=== PATIENT | female | born 1975 | race Hispanic/Latino ===

== ENCOUNTER 2017-11-28 11:42 | Observation (INO) | payer OTHER ==
[~2017-11-28] VITALS: Ht 154.9 cm; Wt 82.6 kg
[2017-11-28] VITALS (9 sets, daily range): BP systolic 121–154; BP diastolic 58–89
[2017-11-28] MEDS ORDERED: ONDANSETRON HCL INJ 2 MG/ML VIAL IV STA (11:51)
[2017-11-28] MEDS ORDERED: KETOROLAC TROMETHAMINE 30 MG/ML VIAL IV STA (11:51)
[2017-11-28] MEDS ORDERED: SODIUM CHLORIDE 0.9% 1000ML 1,000 ML IV SCH (12:00)
[2017-11-28 12:12] LABS: BASOPHILS # (AUTO) 0.1 (0.0-0.1); BASOPHILS % 0.4 % (0.0-1.0); EOSINOPHILS # (AUTO) 0.1 (0.0-0.4); EOSINOPHILS % 0.7 % (0.0-6.0); HEMATOCRIT 37.4 % (34.2-44.1); HEMOGLOBIN 12.4 g/dL (12.0-16.0); LYMPHOCYTES # (AUTO) 1.3 (1.0-3.2); LYMPHOCYTES % 9.7 % (18.0-39.1); MEAN CORPUSCULAR HEMOGLOBIN 27.7 pg (28-32); MEAN CORPUSCULAR HGB CONC 33.2 g/dL (31-35); MEAN CORPUSCULAR VOLUME 83.5 fL (81-99); MONOCYTES # (AUTO) 0.8 (0.2-0.8); MONOCYTES % 6.2 % (4.4-11.3); NEUTROPHILS # (AUTO) 11.3 (2.1-6.9); NEUTROPHILS % 82.8 % (38.7-80.0); PLATELET COUNT 509 x10e3/uL (140-360); RED BLOOD COUNT 4.48 x10e6/uL (3.6-5.1); RED CELL DISTRIBUTION WIDTH 13.1 % (11.7-14.4)
[2017-11-28 12:17] LABS: BILIRUBIN,URINE NEGATIVE (NEGATIVE); CLARITY,URINE CLOUDY (CLEAR); COLOR,URINE AMBER (YELLOW); KETONES,URINE TRACE (NEGATIVE); LEUKOCYTE ESTERASE ,URINE NEGATIVE (NEGATIVE); NITRITE,URINE NEGATIVE (NEGATIVE); PROTEIN,URINE DIPSTICK 1+ (NEGATIVE); URINE UROBILINOGEN 0.2 mg/dL (0.2 - 1)
[2017-11-28 12:31] LABS: BACTERIA,URINE RARE /HPF; EPITHELIAL CELLS,URINE MODERATE /LPF; RBC,URINE 21-50 /HPF (0-5); WBC,URINE (MAN) 0-5 /HPF (0-5)
[2017-11-28 12:33] LABS: ALANINE AMINOTRANSFERASE 30 IU/L (0-55); ALKALINE PHOSPHATASE 153 IU/L (40-150); ANION GAP 12.9 mmol/L (8-16); BLOOD UREA NITROGEN 9 mg/dL (7-26); BUN/CREATININE RATIO 9 (6-25); CALCIUM 9.7 mg/dL (8.4-10.2); CARBON DIOXIDE 26 mmol/L (22-29); CHLORIDE 101 mmol/L (98-107); CREATININE, SERUM 1.01 mg/dL (0.57-1.11); EST GLOMERULAR FILTRATION RATE 60 ML/MIN (60-); GLUCOSE 113 mg/dL (74-118); POTASSIUM 3.9 mmol/L (3.5-5.1); SODIUM 136 mmol/L (136-145)
--- NOTE | 2017-11-28 13:33 | Diagnostic Imaging Report ---
ADDENDUM #1 Addendum impression: Dose modulation, iterative reconstruction, and/or weight based adjustment of the mA/kV was utilized to reduce the radiation dose to as low as reasonably achievable. Signed by: Dr. Abhay Morrissey M.D. on 12/04/2017 11:02 AM ORIGINAL REPORT EXAM: CT Abdomen and Pelvis WITHOUT contrast INDICATION: Flank pain COMPARISON: None. TECHNIQUE: Abdomen and Pelvis was scanned utilizing a multidetector helical scanner without the use of IV contrast. Coronal and sagittal reformations were obtained. IV CONTRAST: None COMPLICATIONS: None RADIATION DOSE: Total DLP: 496 mGy*cm Estimated effective dose: (DLP x 0.015 x size factor) mSv CTDIvol has been reviewed. It is below the limits set by the Radiation Protocol Committee (RPC). Appropriate CT dose reduction techniques were utilized. FINDINGS: Abdomen: Lung Bases: Respiratory motion limits. No acute. Solid Organs: Cholecystectomy clips. There is a 6 mm calculus at the left UVJ with moderate left hydroureter, moderate left hydronephrosis, and moderate left perinephric stranding. Otherwise, nonenhanced images of the liver, adrenals, right kidney, spleen, and pancreas are unremarkable. Upper GI Tract: No small bowel obstructive changes. Nonspecific fluid-filled loops of small bowel. Vascularity: No aneurysm of aorta. Lymph Nodes: No suspicious adenopathy. Other: Diastases ventral abdomen. Pelvis: Bladder: Decompressed, limiting. Other: Uterus/adnexa grossly unremarkable within limitations of CT. Colon: No acute colonic findings. Bones: No acute findings. IMPRESSION: 1. 6 mm calculus left UVJ with moderate left hydroureter and hydronephrosis. Signed by: Dr. Cristopher Amato MD on 11/28/2017 1:30 PM
[2017-11-28] MEDS ORDERED: MORPHINE SULFATE 2 MG/ML SYR IV PRN (14:45)
[2017-11-28] MEDS: MORPHINE SULFATE INJ 4 MG/ML INJ IV PRN (15:15)
[2017-11-28] MEDS: SODIUM CHLORIDE 0.9% 1000ML 1,000 ML IV SCH ×2 (15:15→21:06)
[2017-11-28] MEDS: ONDANSETRON HCL INJ 2 MG/ML VIAL IV PRN (15:15)
[2017-11-28] MEDS ORDERED: CEFTRIAXONE SOD 1 GM VIAL IV SCH (16:00)
[2017-11-28] MEDS ORDERED: ALBUTEROL/IPRATROPIUM 3 ML NEB ONE (17:12)
[2017-11-28] MEDS ORDERED: METHYLPREDNISOLONE SOD SUCC 125 MG/2ML VIAL ONE (17:15)
[2017-11-28] MEDS ORDERED: MAGNESIUM SULFATE 2GM/50ML 50 ML IV ONE (17:16)
[2017-11-28] MEDS ORDERED: ALBUTEROL SULF 0.083% NEB SOLN 3 ML NEB NEB STA (17:57)
[2017-11-28] MEDS ORDERED: LIDOCAINE 1% W/EPINEPHRINE 20 ML VIAL INJ ONE (18:00)
[2017-11-28] MEDS ORDERED: IPRATROPIUM BROMIDE 0.02% 2.5 ML NEB NEB ONE (18:00)
[2017-11-28] MEDS ORDERED: DIPHENHYDRAMINE HCL 25 MG CAP PO PRN (18:15)
[2017-11-28] MEDS: HYDROCODONE/APAP 5MG-325MG TAB PO PRN (18:26)
[2017-11-28] MEDS: ALBUTEROL SULF 0.083% NEB SOLN 3 ML NEB NEB SCH (19:00)
--- NOTE | 2017-11-28 19:47 | Diagnostic Imaging Report ---
Examination: Single AP view of the chest. COMPARISON: None. INDICATION: Shortness of breath DISCUSSION: Lines/tubes: None. Lungs: The lungs are well inflated and clear. No pneumonia or pulmonary edema. Pleura: No pleural effusion or pneumothorax. Heart and mediastinum: The heart and the mediastinum are unremarkable. Bones and soft tissues: No acute bony abnormalities. IMPRESSION: 1. No acute cardiopulmonary abnormalities. Signed by: Dr. Abhay Morrissey M.D. on 11/28/2017 7:44 PM
--- NOTE | 2017-11-28 20:21 | Diagnostic Imaging Report ---
EXAMINATION: Head CT without contrast. HISTORY:Trauma, fall. COMPARISON:None. TECHNIQUE: Multidetector axial images were obtained from the foramen magnum to the vertex without contrast. The images were reconstructed using brain and bone algorithms. Thin section brain images were reformatted into coronal and sagittal planes. Dose modulation, iterative reconstruction, and/or weight based adjustment of the mA/kV was utilized to reduce the radiation dose to as low as reasonably achievable. Intravenous contrast: None IMAGE QUALITY: Acceptable. FINDINGS: Skull/scalp: Mild left frontal scalp soft tissue edema/hematoma and soft tissue emphysema with focal laceration. No acute depressed or displaced calvarial fracture. Focal scalp soft tissue defect in the right frontal scalp with deformity in the outer table of right frontal calvarium possibly related to prior trauma (image 22, series 3). Parenchyma: No abnormal density. No acute hemorrhage, mass or acute age or vascular territorial infarct. Arteries: No density suggestive of thrombosis. Dural sinuses: No abnormal density suggestive of thrombosis. Ventricles: No hydrocephalus or displacement. Extra-axial spaces: No abnormal density. Brain volume: Normal for age. Craniocervical junction: No mass, Chiari malformation, or basilar invagination. Sella: No mass. Paranasal/mastoid sinuses: Moderate mucosal thickening in left sphenoid sinus. Under pneumatization and sclerosis of right more than left mastoid air cells possibly related to chronic inflammation process. IMPRESSION: 1. Mild left frontal scalp soft tissue edema/hematoma and laceration. No acute calvarial fracture. 2. No acute posttraumatic intracranial abnormality. Signed by: Dr. Leola Mendoza M.D. on 11/28/2017 8:17 PM
--- NOTE | 2017-11-28 20:24 | Diagnostic Imaging Report ---
EXAMINATION: CT scan of the chest with contrast. TECHNIQUE: Helical CT images of the chest were performed from the lung apices to the level of the adrenal glands after the intravenous administration of 100 cc of Isovue 300. Coronal and sagittal reformatted images were obtained. COMPARISON: None. CLINICAL HISTORY:Nephrolithiasis, shortness of breath DISCUSSION: LINES/TUBES: None. LUNGS AND AIRWAYS: Scarring in the bilateral upper lobes and superior segment of the right lower lobe. No concerning consolidations, nodules, or masses. No pulmonary embolism to the lobar level. Artifact distally. PLEURA: No pneumothorax or pleural effusions. HEART AND MEDIASTINUM: The thyroid gland is normal. Enlargement of the main pulmonary artery measuring 3.2 cm. LYMPH NODES: There is no mediastinal, hilar or axillary lymphadenopathy. ABDOMEN: Limited contrast-enhanced views of the upper abdomen show no abnormality within the visualized liver, spleen, pancreas, or kidneys. The adrenal glands are normal. BONES AND SOFT TISSUES: No acute bony abnormalities. IMPRESSION: No pulmonary embolism. Scarring in the upper lungs. Signed by: Dr. Abhay Morrissey M.D. on 11/28/2017 8:21 PM
--- NOTE | 2017-11-28 20:30 | Diagnostic Imaging Report ---
History: Trauma, fall. Comparison studies: None Technique: Axial images were obtained through the cervical region.. Coronal and sagittal images reconstructed from the axial data. Dose modulation, iterative reconstruction, and/or weight based adjustment of the mA/kV was utilized to reduce the radiation dose to as low as reasonably achievable. Intravenous contrast: None Findings: Fractures: None. Soft tissue injuries: None. Atlantoaxial articulation: Intact. Alignment: Mild exaggeration of cervical lordosis. No scoliosis. 2 mm grade 1 retrolisthesis at C4-C5. Cervicomedullary junction: No abnormalities. The foramen magnum is patent. Soft tissues: Airspace opacity in right lung apex with traction bronchiectasis and calcifications likely represents scarring. Vertebrae: Nonspecific 5 mm sclerotic focus within the body of C2, may represent bone island. Nonspecific curvilinear hyperdensity posterior to the posterior arch of C1. No fractures, infection or neoplasm. Degenerative changes: C3-C4: Mild degenerative disc disease. C4-C5: Grade 1 retrolisthesis. Mild degenerative disc disease. No significant canal or foraminal stenosis. Marked degenerative changes in bilateral costovertebral joints in the visualized upper thoracic spine. IMPRESSION: 1. No acute cervical spine fracture. Grade 1 retrolisthesis at C4-C5 is likely degenerative. 2. Ligament, spinal cord and or vascular abnormalities cannot be excluded on the basis of this examination. Signed by: Dr. Leola Mendoza M.D. on 11/28/2017 8:27 PM
[2017-11-28] MEDS ORDERED: SODIUM CHLORIDE 0.9% 50ML 50 ML ONE (20:59)
[2017-11-28] MEDS ORDERED: IOPAMIDOL 370 MG/ML 200 ML INFUS..BTL INJ ONE (20:59)
[2017-11-28] MEDS: FAMOTIDINE 20 MG TAB PO SCH (21:06)
[2017-11-29] VITALS (8 sets, daily range): BP systolic 103–132; BP diastolic 58–76
[2017-11-29] MEDS: HYDROCODONE/APAP 5MG-325MG TAB PO PRN ×6 (00:09→23:15)
--- NOTE | 2017-11-29 00:25 | Consultation ---
PULMONARY CONSULTATION HISTORY: Charming but unfortunate 42-year-old woman, admitted with left flank pain. At approximately 2 a.m. had sweats, dizziness and vomiting. History of renal colic, history of asthma. Uses Symbicort irregularly. Nonsmoker, able to exercise. She became suddenly dizzy after an IV push dose of Rocephin and fell forward striking her head. Complaining of headaches and pain, shortness of breath. Now on BiPAP, able to wean off. She appears flushed. There is a laceration on the forehead. The patient does have history of smoking 1 to 2 cigarettes a day. PHYSICAL EXAMINATION VITAL SIGNS: Temperature 97.6, pulse 74, respirations 19, blood pressure 154/80. HEAD: Laceration on forehead. LUNGS: Diminished breath sounds. HEART: Regular rhythm. ABDOMEN: Nontender. EXTREMITIES: Nonedematous. IMPRESSION: Adverse drug reaction, possibly allergic, possibly related to rapid intravenous push. PLAN: Continue support. Check blood gas, chest x-ray. Bronchodilators, Benadryl, Pepcid, moderate-dose steroid. Observation. BiPAP, appears comfortable weaning off BiPAP. Thank you for this kind referral. Job#: [id number] [place]
[2017-11-29] MEDS: ALBUTEROL SULF 0.083% NEB SOLN 3 ML NEB NEB SCH ×4 (01:00→18:50)
--- NOTE | 2017-11-29 01:00 | Consultation ---
DATE OF CONSULTATION: November 28, 2017 UROLOGY CONSULTATION Consultation was called by Dr. Hall in the emergency room. CHIEF UROLOGICAL COMPLAINT/REASON FOR CONSULTATION: Kidney stones. HISTORY OF PRESENT ILLNESS: Mrs. Dominguez is a 42-year-old female admitted to the hospital with left-sided flank pain and nausea. Denied vomiting. Denied fevers. No chills. PAST MEDICAL HISTORY: Significant for cholecystectomy, and kidney stones, multiple. MEDICATIONS: Please see MAR. ALLERGIES: NKDA. SOCIAL HISTORY: No smoking or drinking. FAMILY HISTORY: Denied urologic stones or malignancies. REVIEW OF SYSTEMS: Noncontributory other than problems mentioned above for 12 systems. PHYSICAL EXAMINATION GENERAL: A middle-aged female in no acute distress. VITALS: Currently, temperature is 97.8, pulse 85, respirations 20, blood pressure 128/100. HEENT: Sclerae are anicteric. NECK: Supple. BACK: Without costovertebral angle tenderness bilaterally. ABDOMEN: Soft, nontender nondistended. There is no palpable mass. No palpable hernias. GENITOURINARY: Reveals female genitalia. EXTREMITIES: Without edema. PSYCH: Alert and appropriate. SKIN: Intact. Normal color. PERTINENT LABORATORY DATA: CT scan revealing a 6 mm left UVJ stone and hydronephrosis. Hemoglobin 12, hematocrit 37 and platelet count 509,000. White blood cells count 13,620. Sodium 136, potassium 3.9, chloride 101, bicarb 26, BUN 9, creatinine 1.01, glucose 113. Alk phos of 153. Urinalysis with 21-50 reds and 0-5 whites. IMPRESSION 1. Left ureteral calculus. 2. Left hydronephrosis. 3. Left renal colic. 4. Microscopic hematuria. 5. Malignant hypertension. PLAN: Employ a brief trial of passage. Should this fail, will discuss options regarding management of the patient. Thank you for allowing us to participate in the care of your patient. Will be happy to follow along with you. Job#: [id number] [place] cc: DR. HALL
[2017-11-29] MEDS: SODIUM CHLORIDE 0.9% 1000ML 1,000 ML IV SCH ×3 (05:04→20:47)
[2017-11-29 05:18] LABS: BASOPHILS % 0.1 % (0.0-1.0); HEMATOCRIT 32.6 % (34.2-44.1); HEMOGLOBIN 10.5 g/dL (12.0-16.0); LYMPHOCYTES # (AUTO) 0.7 (1.0-3.2); LYMPHOCYTES % 8.9 % (18.0-39.1); MEAN CORPUSCULAR HEMOGLOBIN 27.3 pg (28-32); MEAN CORPUSCULAR HGB CONC 32.2 g/dL (31-35); MEAN CORPUSCULAR VOLUME 84.7 fL (81-99); MONOCYTES # (AUTO) 0.1 (0.2-0.8); NEUTROPHILS # (AUTO) 7.2 (2.1-6.9); NEUTROPHILS % 89.6 % (38.7-80.0); PLATELET COUNT 428 x10e3/uL (140-360); RED BLOOD COUNT 3.85 x10e6/uL (3.6-5.1); RED CELL DISTRIBUTION WIDTH 13.3 % (11.7-14.4)
[2017-11-29 05:50] LABS: ANION GAP 12.1 mmol/L (8-16); BLOOD UREA NITROGEN 5 mg/dL (7-26); BUN/CREATININE RATIO 7 (6-25); CARBON DIOXIDE 23 mmol/L (22-29); CHLORIDE 108 mmol/L (98-107); CREATININE, SERUM 0.75 mg/dL (0.57-1.11); EST GLOMERULAR FILTRATION RATE > 60 ML/MIN (60-); GLUCOSE 162 mg/dL (74-118); POTASSIUM 4.1 mmol/L (3.5-5.1); SODIUM 139 mmol/L (136-145)
--- NOTE | 2017-11-29 06:38 | Diagnostic Imaging Report ---
ABDOMEN-1VIEW (KUB) Clinical history: Stone Technique: AP view abdomen Comparison: CT from 11/28/2017 Findings: Abdomen: Nonobstructive bowel gas pattern with moderate stool burden. Other: Cholecystectomy clips. A 6 mm stone projects over the left pelvis, region of the expected UVJ where a stone was seen on CT. Pelvic phleboliths. Impression: Stable 6 mm stone at the expected left UVJ. Signed by: Dr Jeaneth Boyd MD on 11/29/2017 6:34 AM
[2017-11-29] MEDS ORDERED: METHYLPREDNISOLONE SOD SUCC 40 MG/ML VIAL IV ONE (08:00)
[2017-11-29] MEDS: FAMOTIDINE 20 MG TAB PO SCH ×2 (08:20→16:59)
[2017-11-29] MEDS: LEVOFLOXACIN 250 MG TAB PO SCH (08:41)
[2017-11-29] MEDS: BACITRACIN ZINC 15 GM OINT TOP SCH (08:42)
[2017-11-29] MEDS: MORPHINE SULFATE INJ 4 MG/ML INJ IV PRN ×2 (16:30→20:44)
[2017-11-29] MEDS: ONDANSETRON HCL INJ 2 MG/ML VIAL IV PRN (16:30)
[2017-11-30] VITALS (9 sets, daily range): BP systolic 111–146; BP diastolic 58–79
[2017-11-30] MEDS: MORPHINE SULFATE INJ 4 MG/ML INJ IV PRN ×4 (01:15→17:54)
[2017-11-30] MEDS: ALBUTEROL SULF 0.083% NEB SOLN 3 ML NEB NEB SCH ×3 (02:15→13:52)
[2017-11-30] MEDS: SODIUM CHLORIDE 0.9% 1000ML 1,000 ML IV SCH (05:02)
[2017-11-30] MEDS ORDERED: IOPAMIDOL 300MG/ML 50ML INFUS..BTL IV ONE (06:30)
[2017-11-30] MEDS ORDERED: FENTANYL CITRATE/PF 100MCG/2 ML INJ ONE ×2 (07:31→17:12)
[2017-11-30] MEDS: BACITRACIN ZINC 15 GM OINT TOP SCH (09:00)
[2017-11-30] MEDS: LEVOFLOXACIN 250 MG TAB PO SCH (09:04)
[2017-11-30] MEDS: FAMOTIDINE 20 MG TAB PO SCH (09:04)
--- NOTE | 2017-11-30 09:33 | Operative Report ---
DATE OF PROCEDURE: November 30, 2017 PREOPERATIVE DIAGNOSES 1. Microscopic hematuria. 2. Left ureteral calculus. 3. Hydronephrosis. POSTOPERATIVE DIAGNOSES 1. Microscopic hematuria. 2. Left ureteral calculus. 3. Hydronephrosis. PROCEDURES 1. Cystourethroscopy with right ureteral catheterization and right retrograde pyelogram (entirely separate procedure for microscopic hematuria). 2. Left-sided ureteroscopy with laser lithotripsy and stent placement. 3. Left-sided ureteroscopy with stone basket extraction (entirely separate procedure not required for laser lithotripsy with exquisite purpose of sending stones for analysis for the future prevention of stones). 4. Supervision of fluoroscopy for ureteroscopy and dilation portion. 5. Supervision of fluoroscopy for stent placement. 6. Interpretation of retrograde ureteropyelography. ANESTHESIA: General. ESTIMATED BLOOD LOSS: Minimal. COMPLICATIONS: None. INDICATIONS: Ms. Dominguez is a very pleasant 42-year-old female admitted to the hospital with intractable renal colic and hematuria. She and I had a long discussion about alternatives, risks and benefits including doing nothing, cystoscopy, stent placement, shockwave lithotripsy, ureteroscopy, percutaneous surgery, and open surgery. She voiced understanding of the options, alternatives, risks, and benefits, and she elected to proceed with ureteroscopy and stent placement. She voiced explicit understanding the day prior and the day of, and that the stent is a temporary indwelling device and must be removed. Failure to do so could lead to encrustation, infection, inflammation, actual loss of the kidney, and even . She elected to proceed. PROCEDURE IN DETAIL: After informed consent was obtained, the patient was to the operating suite. She was placed supine on the table. She underwent general anesthesia by the anesthesia service. She was placed in the dorsal lithotomy position, and sterilely prepped and draped in a standard fashion for cystoscopy. She received prophylactic antibiotics. A time out was taken. A 22.5-Mosotho cystoscope was inserted per urethra, and panendoscopy of the bladder revealed no tumors and no stones. Both ureteral orifices were within normal anatomic location and position. Bilateral retrograde pyelograms were performed. The right was normal. The left revealed a 6 x 6 mm distal ureteral obstructing stone with hydronephrosis. A guidewire was inserted. The ureter was dilated. The rigid ureteroscope was driven to the level of the offending stone. Utilizing a 365 micron, the stone was broken in several pieces. A basket was then inserted and extracted pieces, and sent them for analysis for explicit purposes of sending the stones for analysis and not required for laser lithotripsy. At this time, a 6 x 24 ureteral stent was placed with the coil in the renal pelvis and a coil in the bladder. The bladder was drained. The patient was awakened from anesthesia and transported to the recovery room in excellent condition. SUPERVISION OF FLUOROSCOPY, INTERPRETATION OF RETROGRADE URETERAL PYELOGRAPHY: I was present throughout the entire procedure and I supervised the use of fluoroscopy. There was no radiologist present. Attention was turned toward the left, and the ureteral orifice was catheterized with a 5-Mosotho open-ended catheter. A retrograde pyelogram was performed revealing delicate ureters, delicate pelviceal system on the right. On the left side, a 6 x 6 mm distal obstructing stone with hydronephrosis, intramural removal of the stone, and placement of left ureteral stent in adequate position. Job#: [id number] ABUNDIO
[2017-11-30] MEDS ORDERED: PROPOFOL IV EMULSION 10 MG/ML 20 ML VIAL ONE (17:05)
[2017-11-30] MEDS ORDERED: LIDOCAINE HCL 2% LOCAL INJ 5 ML SDV VIAL INJ ONE (17:05)
[2017-11-30] MEDS ORDERED: MIDAZOLAM HCL 2 MG/2 ML VIAL ONE (17:12)
[2017-11-30] MEDS: ACETAMINOPHEN/CODEINE 300MG - 30MG TAB PO PRN (21:23)
[2017-11-30] MEDS: TRIMETHOPRIM/SULFAMETHOXAZOLE 160-800 MG TAB PO SCH (21:24)
[2017-12-01] MEDS: MORPHINE SULFATE INJ 4 MG/ML INJ IV PRN ×2 (00:09→07:39)
[2017-12-01] MEDS: ONDANSETRON HCL INJ 2 MG/ML VIAL IV PRN (00:09)
[2017-12-01 04:15] VITALS: BP 132/78
[2017-12-01] MEDS: ACETAMINOPHEN/CODEINE 300MG - 30MG TAB PO PRN ×2 (04:29→12:29)
[2017-12-01 08:21] VITALS: BP 127/76
[2017-12-01] MEDS: BACITRACIN ZINC 15 GM OINT TOP SCH (08:54)
[2017-12-01] MEDS: TRIMETHOPRIM/SULFAMETHOXAZOLE 160-800 MG TAB PO SCH (08:54)
[2017-12-01 10:06] VITALS: BP 127/76
[2017-12-01 11:38] VITALS: BP 115/57
[2017-12-01] MEDS ORDERED: TYLENOL WITH C1 EACH PO (15:28)
[2017-12-01] MEDS ORDERED: BACTRIM DS TAB1 EACH PO (15:30)
[2017-12-01] MEDS ORDERED: PROAIR HFA INH8.5 GM IH (15:30)
--- NOTE | 2017-12-01 15:50 | Discharge Summary ---
PRIMARY CARE DOCTOR: Dr. Masha Lind with [facility]. FINAL DIAGNOSIS: Left-sided nephrolithiasis with hydronephrosis. SECONDARY DIAGNOSES 1. Syncope due to intravenous Rocephin. 2. Head laceration. PROCEDURES/STUDIES PERFORMED: Cysto with ureteral stent placement and lithotripsy. CONSULTANTS 1. Dr. Harrison, urology. 2. Dr. Choi, telephone clerk. HISTORY: Per [facility]. HOSPITAL COURSE: The patient was admitted. Initially, since the stone was 6 mm, we gave her a trial of passing the stone on her own with IV fluids. However, that did not work. Therefore, cysto was done with lithotripsy and ureteral stent. The patient will go home on Bactrim and Tylenol No. 3 as needed. The patient will follow up with urology in a week to remove the stent. The patient was given IV Rocephin initially empirically. However, the patient had an allergic reaction. She felt dizzy although no swelling and no shortness of breath. Subsequently, the patient passed out and hit her head. Head CT was okay. The patient also had respiratory distress, which subsequently resolved on its own. Her laceration was repaired. The patient will follow up with her primary care doctor in a week for that as well. CONDITION ON DISCHARGE: Stable. DISCHARGE MEDICATIONS: Please see medication reconciliation form. The patient was seen and examined today. PASCUAL LYONS M.D. Job#: [id number] [place]
== END 2017-12-01 16:27 | disposition home or self-care (01) ==
LOC: ER 11:42 → ERHOLD 14:40 → IMCU 16:13
PROVIDERS: ADMIT Internal Medicine; ATTEND Internal Medicine
DX: N13.2 Hydronephrosis with renal and ureteral calculous obstruction (principal); R55 Syncope and collapse; S01.81XA Laceration without foreign body of other part of head, initial encounter; W01.190A Fall on same level from slipping, tripping and stumbling with subsequent striking against furniture, initial encounter; Y93.89 Activity, other specified; Y92.230 Patient room in hospital as the place of occurrence of the external cause; F17.210 Nicotine dependence, cigarettes, uncomplicated; Z87.442 Personal history of urinary calculi; T36.1X5A Adverse effect of cephalosporins and other beta-lactam antibiotics, initial encounter; R31.29 Other microscopic hematuria; I10 Essential (primary) hypertension; R06.03 Acute respiratory distress
CPT/HCPCS: 12053; 36415 ×2; 52320; 52356; 70450; 71045; 71260; 72125; 74018; 74176; 74420; 80048; 80053; 81001; 84702; 85025 ×2; 88300; 94640 ×5; 94660; 99284; G0378 ×4; J0696; J1885; J2001; J2250; J2270 ×3; J2405 ×3; J2920; J2930; J7030 ×3; Q9967 ×2; 36600; 82805